=== PATIENT | female | born 1980 | race Caucasian/White ===

== ENCOUNTER → 2016-10-23 | Outpatient (CLI) | payer OTHER, SELFPAY ==
[2016-10-23 10:23] LABS: HEMOGLOBIN 14.7 gm/dl (12.3-15.3); RED BLOOD COUNT 5.73 M/UL (4.00-5.10); WHITE BLOOD COUNT 7.4 K/UL (4.5-11.0)
[2016-10-23 10:51] LABS: BUN/CREATININE RATIO 22 (0-10)
== END ==
LOC: LAB 09:52
PROVIDERS: Physician Assistant
DX: Z13.9 Encounter for screening, unspecified (principal)
CPT/HCPCS: 36415; 80053; 80061; 84443; 85025

== ENCOUNTER → 2016-12-20 | Outpatient (CLI) | payer OTHER, SELFPAY | LOC: LAB 13:43 | DX: J45.40 Moderate persistent asthma, uncomplicated (principal); J30.1 Allergic rhinitis due to pollen; K21.0 Gastro-esophageal reflux disease with esophagitis; J01.91 Acute recurrent sinusitis, unspecified; H10.45 Other chronic allergic conjunctivitis; J01.90 Acute sinusitis, unspecified; J30.89 Other allergic rhinitis | CPT/HCPCS: 36415; 82785; 86003 ==